=== PATIENT | female | born 1970 | race Caucasian/White ===

== ENCOUNTER 2018-10-18 11:19 | Emergency (ER) | payer SELFPAY ==
--- NOTE | 2018-10-18 12:16 | RAD REPORT ---
EXAM DESCRIPTION: RAD - Ankle Left 3 View - 10/18/2018 12:09 pm CLINICAL HISTORY: Pain;Swelling COMPARISON: No comparisons FINDINGS: Moderate soft tissue swelling is seen adjacent to the lateral malleolus. Minimal avulsion fracture is seen in the very distal aspect of the fibula. Small plantar calcaneal spur evident.
--- NOTE | 2018-10-18 12:35 | EDPHYS ---
Physician Documentation [facility] Name: Elizabeth Ralph Age: 48 yrs Sex: Female : 1970 Arrival Date: 10/18/2018 Time: 11:25 Bed 13 Private MD: None, None ED Physician Perez Ivy HPI: 10/18 12:33 This 48 yrs old Female presents to ER via Wheelchair with complaints of Ankle kb Injury. 12:33 The patient presents with decreased range of motion, an injury, pain, that is acute, kb swelling, tenderness. The complaints affect the left ankle. Onset: The symptoms/episode began/occurred yesterday. Context: The problem was sustained outdoors, resulted from jumped off of a curb and landed wrong, The mechanism of injury involved inversion of the affected ankle. The patient is unable to bear weight. can ambulate using crutches. Associated signs and symptoms: Pertinent positives: swelling, Pertinent negatives: calf tenderness, fever, nausea, numbness, rash, tingling, vomiting, warmth, weakness. Modifying factors: The symptoms are alleviated by nothing, the symptoms are aggravated by weight bearing. Severity of symptoms: At their worst the symptoms were moderate, in the emergency department the symptoms are unchanged. The patient has not experienced similar symptoms in the past. The patient has not recently seen a physician. 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 - Social history:: Smoking status: Patient/guardian denies using tobacco. - Ebola Screening: : No symptoms or risks identified at this time. ROS: 12:32 Constitutional: Negative for fever, chills, and weight loss, Cardiovascular: Negative kb for chest pain, palpitations, and edema, Respiratory: Negative for shortness of breath, cough, wheezing, and pleuritic chest pain, Abdomen/GI: Negative for abdominal pain, nausea, vomiting, diarrhea, and constipation, Skin: Negative for injury, rash, and discoloration, Neuro: Negative for headache, weakness, numbness, tingling, and seizure. 12:32 MS/extremity: Positive for injury or acute deformity, decreased range of motion, pain, swelling, tenderness, of the left lateral ankle. Exam: 12:32 Constitutional: This is a well developed, well nourished patient who is awake, alert, kb and in no acute distress. Head/Face: Normocephalic, atraumatic. Chest/axilla: Normal chest wall appearance and motion. Nontender with no deformity. No lesions are appreciated. Cardiovascular: Regular rate and rhythm with a normal S1 and S2. No gallops, murmurs, or rubs. Normal PMI, no JVD. No pulse deficits. Respiratory: Lungs have equal breath sounds bilaterally, clear to auscultation and percussion. No rales, rhonchi or wheezes noted. No increased work of breathing, no retractions or nasal flaring. Abdomen/GI: Soft, non-tender, with normal bowel sounds. No distension or tympany. No guarding or rebound. No evidence of tenderness throughout. Neuro: Awake and alert, GCS 15, oriented to person, place, time, and situation. Cranial nerves II-XII grossly intact. Motor strength 5/5 in all extremities. Sensory grossly intact. Cerebellar exam normal. Normal gait. 12:32 Musculoskeletal/extremity: Extremities: grossly normal except: noted in the anterior aspect of left ankle: decreased ROM, ecchymosis, pain, swelling, tenderness, ROM: limited active range of motion due to pain, in the anterior aspect of left ankle, Circulation is intact in all extremities. Sensation intact. Weight bearing: is unable to bear weight. Vital Signs: 11:35 BP 126 / 89; Pulse 87; Resp 18; Temp 98.4; Pulse Ox 100% ; Weight 77.11 kg; Height 5 sv ft. 6 in. (167.64 cm); Pain 6/10; 11:35 Body Mass Index 27.44 (77.11 kg, 167.64 cm) sv MDM: 12:21 Patient medically screened. kb 12:33 Data reviewed: vital signs, nurses notes. Data interpreted: Pulse oximetry: on room air kb is 100 %. Interpretation: normal. Counseling: I had a detailed discussion with the patient and/or guardian regarding: the historical points, exam findings, and any diagnostic results supporting the discharge/admit diagnosis, radiology results, the need for outpatient follow up, a orthopedic surgeon, to return to the emergency department if symptoms worsen or persist or if there are any questions or concerns that arise at home. 10/18 11:36 Order name: Ankle Left 3 View XRAY; Complete Time: 12:21 sv Administered Medications: No medications were administered Disposition: 15:27 Co-signature as Attending Physician, Perez Ivy MD I agree with the assessment and odalys plan of care. Disposition: 10/18/18 12:35 Discharged to Home. Impression: Avulsion fracture of left fibula, Sprain of unspecified ligament of left ankle. - Condition is Stable. - Discharge Instructions: Ankle Sprain, [id number]. - Prescriptions for Diclofenac Sodium 75 mg Oral Tablet, Delayed Release (E.C.) - take 1 tablet by ORAL route 2 times per day As needed; 30 tablet. - Medication Reconciliation Form, Thank You Letter, Antibiotic Education, Prescription Opioid Use form. - Follow up: Emergency Department; When: As needed; Reason: Worsening of condition. Follow up: Private Physician; When: 2 - 3 days; Reason: Recheck today's complaints, Continuance of care, Re-evaluation by your physician. Signatures: Dispatcher [employer] EDMT Ching Griggs, DRAKE-C Jillian Booker RN RN sv Anderson, Corey, MD MD cha Peltier, Brian RN RN bp Corrections: (The following items were deleted from the chart) 12:58 12:35 10/18/2018 12:35 Discharged to Home. Impression: Avulsion fracture of left bp fibula; Sprain of unspecified ligament of left ankle. Condition is Stable. Forms are Medication Reconciliation Form, Thank You Letter, Antibiotic Education, Prescription Opioid Use. Follow up: Emergency Department; When: As needed; Reason: Worsening of condition. Follow up: Private Physician; When: 2 - 3 days; Reason: Recheck today's complaints, Continuance of care, Re-evaluation by your physician. kb
--- NOTE | 2018-10-18 12:35 | ER ---
Nurse's Notes [facility] Name: Elizabeth Ralph Age: 48 yrs Sex: Female : 1970 Arrival Date: 10/18/2018 Time: 11:25 Bed 13 Private MD: None, None Diagnosis: Avulsion fracture of left fibula;Sprain of unspecified ligament of left ankle Presentation: 10/18 11:34 Presenting complaint: Patient states: left ankle injury/swelling started last night sv after tripping on a curb. Transition of care: patient was not received from another setting of care. Onset of symptoms was October 17, 2018. Care prior to arrival: Medication(s) given: BC powder. 11:34 Method Of Arrival: Wheelchair sv 11:34 Acuity: JANIYA 4 sv 12:58 Risk Assessment: Do you want to hurt yourself or someone else? Patient reports no bp desire to harm self or others. Initial Sepsis Screen: Does the patient meet any 2 criteria? No. Patient's initial sepsis screen is negative. Does the patient have a suspected source of infection? No. Patient's initial sepsis screen is negative. Triage Assessment: 11:35 General: Appears in no apparent distress. uncomfortable, well developed, Behavior is sv calm, cooperative, appropriate for age. Pain: Complains of pain in left lateral ankle Pain currently is 6 out of 10 on a pain scale. Neuro: Level of Consciousness is awake, alert, obeys commands, Oriented to person, place, time, situation. Respiratory: Respiratory effort is even, unlabored, Respiratory pattern is regular, symmetrical. Musculoskeletal: Swelling present in left lateral ankle, left medial ankle and anterior aspect of left ankle. 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 - Social history:: Smoking status: Patient/guardian denies using tobacco. - Ebola Screening: : No symptoms or risks identified at this time. Screenin:54 Abuse screen: Denies threats or abuse. Denies injuries from another. Nutritional bp screening: No deficits noted. Tuberculosis screening: No symptoms or risk factors identified. Fall Risk None identified. Assessment: 11:35 General: Appears in no apparent distress. uncomfortable, Behavior is calm, cooperative, bp appropriate for age. Pain: Complains of pain in left lateral ankle. Neuro: Level of Consciousness is awake, alert, obeys commands, Oriented to person, place, time, situation, Appropriate for age. Cardiovascular: No deficits noted. Respiratory: Airway is patent Respiratory effort is even, unlabored, Respiratory pattern is regular, symmetrical. GI: No signs and/or symptoms were reported involving the gastrointestinal system. : No signs and/or symptoms were reported regarding the genitourinary system. EENT: No deficits noted. Derm: No deficits noted. Musculoskeletal: Circulation, motion, and sensation intact. Swelling. Vital Signs: 11:35 BP 126 / 89; Pulse 87; Resp 18; Temp 98.4; Pulse Ox 100% ; Weight 77.11 kg; Height 5 sv ft. 6 in. (167.64 cm); Pain 6/10; 11:35 Body Mass Index 27.44 (77.11 kg, 167.64 cm) sv ED Course: 11:25 Patient arrived in ED. mr 11:25 None, None is Private Physician. mr 11:34 Triage completed. sv 11:35 Arm band placed on. sv 12:04 Patient moved to radiology via wheelchair. mh1 12:06 X-ray completed. Patient tolerated procedure well. Patient moved back from radiology. mh1 12:07 Ching Griggs FNP-C [facility]. kb 12:07 Perez Ivy MD is Attending Physician. kb 12:08 Ankle Left 3 View XRAY In Process Unspecified. EDMS 12:22 Byron Steen, NAYELY is Primary Nurse. bp 12:50 No provider procedures requiring assistance completed. Patient did not have IV access bp during this emergency room visit. Orthoglass splint: Posterior short lleg splint applied on left leg. 12:54 Patient has correct armband on for positive identification. Bed in low position. Call bp light in reach. Side rails up X2. Adult w/ patient. Administered Medications: No medications were administered Outcome: 12:35 Discharge ordered by . kb 12:57 Discharged to home via wheelchair, with family. bp 12:57 Condition: stable 12:57 Discharge instructions given to patient, Instructed on discharge instructions, follow up and referral plans. medication usage, Demonstrated understanding of instructions, follow-up care, medications, splint care, Prescriptions given X 1. 12:58 Patient left the ED. bp Signatures: Dispatcher [employer] EDChing Clemons, MYRON JUAN-Jillian Matos, RN RN Camelia Louise mr Nilesh, Zara 1 Byron Steen, RN RN bp
== END 2018-10-18 12:58 | disposition home or self-care (01) ==
LOC: ER 11:19
DX: S82.402A Unspecified fracture of shaft of left fibula, initial encounter for closed fracture (principal); S93.402A Sprain of unspecified ligament of left ankle, initial encounter; Y93.39 Activity, other involving climbing, rappelling and jumping off
CPT/HCPCS: 99283